=== PATIENT | female | born 1980 ===

== ENCOUNTER → 2017-11-21 | Outpatient (CLI) | payer BC ==
[2017-11-23 15:08] LABS: HPV 16 Negative (Negative); HPV 18 Negative (Negative); HPV OTHER HR TYPES Negative (Negative)
== END ==
LOC: LAB SHORT 16:15 → LAB 16:15
PROVIDERS: Registered Nurse Community Health
DX: Z12.4 Encounter for screening for malignant neoplasm of cervix (principal)
CPT/HCPCS: 87624; G0123

== ENCOUNTER 2021-12-16 08:37 | Day surgery (SDC) | payer BC | END 2021-12-16 23:40 | disposition home or self-care (01) | LOC: MOI MAM 08:37 | DX: D05.11 Intraductal carcinoma in situ of right breast (principal) | CPT/HCPCS: 19081; 88305; 88360; A4648 ==